=== PATIENT | male | born 1955 | race Caucasian/White ===

== ENCOUNTER → 2022-02-28 | Outpatient (CLI) | payer MEDICARE, OTHER | END | disposition home or self-care (01) | LOC: LAB SHORT 14:40 | DX: R21 Rash and other nonspecific skin eruption (principal); L30.0 Nummular dermatitis; L85.3 Xerosis cutis; L57.8 Other skin changes due to chronic exposure to nonionizing radiation; Z71.89 Other specified counseling | CPT/HCPCS: 87070; 87205 ==

== ENCOUNTER 2024-06-02 10:03 | Day surgery (SDC) | payer MEDICARE, OTHER ==
[~2024-06-02] VITALS: Ht 180.3 cm; Wt 116.3 kg
[~2024-06-02 10:03] MED LIST: Balanced Salt Epinephrine Irrigation Solution 500 mL IR SCH; CHLO25B; EPIPEN0.3 MG/0.3; FELODIPINE ER10 M1 PO; FLONASE ALLERG9.9 M2; LOSARTAN POTAS100 M1 PO; Lidocaine HCl/Pf 1% 5 ML VIAL XX SCH; MONT10T; Midazolam HCl 1MG / ML 2ML Vial ONE; Moxifloxacin HCL 0.5 MG/0.1 ML 0.4MLSYR LEFTEYE SCH; NAPR500 PO; PHENYLEPHRINE\\TROPICAMIDE\\TETRACAINE OPHTHALMIC DILATING SOLN LEFTEYE PRN; Povidone-Iodine 450 DROP/30 ML Solution LEFTEYE SCH; Povidone-Iodine 450 DROP/30 ML Solution ONE; REFRESH RELIEVA10 M4; SYMBICORT 160-4.6 GM; Terazosin HCl10 MG PO; Tetracaine HCl/Pf 0.5% Opth Soln 4 ml ONE; Triamcinolone Inj Susp 40 MG / ML 1ML Vial INJ SCH; Triamcinolone Inj Susp 40 MG / ML 1ML Vial ONE
[2024-06-02] MEDS ORDERED: CONTRAVE (10:20)
[2024-06-02] MEDS ORDERED: ALBU90OI INH (10:21)
[2024-06-02] MEDS ORDERED: MOME220I INH (10:21)
--- NOTE | 2024-06-02 10:28 | NUR ---
06/02/24 1028 Yasmin Rossi AT [address] [facility] 101[address]
[2024-06-02 11:36] VITALS: BP 167/95
== END 2024-06-02 11:53 | disposition home or self-care (01) ==
LOC: ORSCSDS 10:03
PROVIDERS: Ophthalmology
PROC: 08RJ3JZ Replacement of Right Lens with Synthetic Substitute, Percutaneous Approach (ICD-10-PCS; principal; 2024-06-02 11:30)
DX: H25.813 Combined forms of age-related cataract, bilateral (principal); I10 Essential (primary) hypertension; J45.909 Unspecified asthma, uncomplicated; E66.9 Obesity, unspecified; Z68.37 Body mass index [BMI] 37.0-37.9, adult; Z79.899 Other long term (current) drug therapy
CPT/HCPCS: J2250; J3301; V2632

== ENCOUNTER 2024-06-03 10:46 | Day surgery (SDC) | payer MEDICARE, OTHER ==
[~2024-06-03] VITALS: Ht 180.3 cm; Wt 114.3 kg
[~2024-06-03 10:46] MED LIST changes: +ALBU90OI INH; +CONTRAVE; +MOME220I INH; -Midazolam HCl 1MG / ML 2ML Vial ONE; -Povidone-Iodine 450 DROP/30 ML Solution ONE
[2024-06-03] MEDS ORDERED: Midazolam HCl 1MG / ML 2ML Vial ONE (11:53)
[2024-06-03 12:36] VITALS: BP 132/70
== END 2024-06-03 12:32 | disposition home or self-care (01) ==
LOC: ORSCSDS 10:46
PROVIDERS: Ophthalmology
PROC: 08RK3JZ Replacement of Left Lens with Synthetic Substitute, Percutaneous Approach (ICD-10-PCS; principal; 2024-06-03 12:30)
DX: H25.812 Combined forms of age-related cataract, left eye (principal); Z96.1 Presence of intraocular lens; I10 Essential (primary) hypertension; G47.33 Obstructive sleep apnea (adult) (pediatric); J45.909 Unspecified asthma, uncomplicated; E66.9 Obesity, unspecified; Z68.35 Body mass index [BMI] 35.0-35.9, adult; Z79.899 Other long term (current) drug therapy
CPT/HCPCS: J2250; J3301; V2632